=== PATIENT | female | born 1995 | race Two or more races ===

== ENCOUNTER 2025-09-22 13:54 | Emergency (ER) | payer MEDICAID, OTHER ==
[~2025-09-22] VITALS: Ht 149.9 cm; Wt 63.1 kg
[2025-09-22] MEDS: METOCLOPRAMIDE HCL 10 MG TAB PO ONE (15:41)
[2025-09-22] MEDS: SUMAtriptan SUCCINATE 6 MG/0.5 ML VL SC ONE (15:42)
--- NOTE | 2025-09-22 15:43 | ED.PDOC ---
HPI (NEURO) HPI Comments A 30 YEAR OLD FEMALE PRESENTS TO THE ED WITH COMPLAINT OF HEADACHE. PT STATES SHE HAS BEEN HAVING HEADACHE WITH NAUSEA AND VOMITING FOR THE PAST 1X DAY. PT STATES SHE TOOK ZOFRAN YESTERDAY AND TODAY BUT IT DID NOT HELP. PT STATES SHE WAS SEEN AT URGENT CARE AND TOLD TO COME TO THE ED FOR FURTHER EVALUATION. PATIENT DENIES FEVER, CHILLS, SHORTNESS OF BREATH, CHEST PAIN, ABDOMINAL PAIN, OR OTHER COMPLAINTS. NO OTHER SYMPTOMS OR MODIFYING FACTORS AT THIS TIME. PATIENT IS ALERT, ORIENTED X 4, AND HAS STEADY GAIT. Chief Complaint: Headache Time Seen by MD: 15:34 Reviewed Notes: Nurses Notes, Medications, Allergies Information Source: Patient Mode of Arrival: Ambulatory Brought in by: SELF Severity: Moderate Dizziness/Weakness Severity: Does not affect activitie Headache Severity: Worst Headache of life Timing: Days Duration: Since onset, Days Prehospital treatment: None Headache Quality: Throbbing Headache Location: Frontal, Parietal Onset: At rest Circumstances: Spontaneous Symptoms: None Before: Normal During: Trauma: None History of: None Modifying factors: Light Associated Signs and Symptoms: Headache, Nausea, Vomiting Past Medical History Past Medical History (Other): MIGRAINE HEADACHE Surgical History: Denies all surgeries FIRE SAFETY MANAGER History: Denies all FIRE SAFETY MANAGER Hx Family History Family History: Reviewed,noncontributory to illness Social History Smoker: Non-Smoker Alcohol: Denies ETOH Use Drugs: Denies Drug Use Lives In: Home Constitutional: denies: chills, diaphoresis, fatigue, fever, malaise, sweats, weakness, others EENTM: denies: blurred vision, double vision, ear bleeding, ear discharge, ear drainage, ear pain, ear ringing, eye pain, eye redness, hearing loss, mouth pain, mouth swelling, nasal discharge, nose bleeding, nose congestion, nose pain, photophobia, tearing, throat pain, throat swelling, voice changes, others Respiratory: denies: cough, hemoptysis, orthopnea, SOB at rest, shortness of breath, SOB with excertion, stridor, wheezing, others Cardiovascular: denies: chest pain, dizzy spells, diaphoresis, Dyspnea on exertion, edema, irregular heart beat, left arm pain, lightheadedness, palpitations, PND, syncope, others Gastrointestinal: reports: nausea, vomiting; denies: abdomen distended, abdominal pain, blood streaked bowels, constipated, diarrhea, dysphagia, difficulty swallowing, hematemesis, melena, poor appetite, poor fluid intake, rectal bleeding, rectal pain, others Genitourinary: denies: abnormal vagina bleeding, burning, dyspareunia, dysuria, flank pain, frequency, hematuria, incontinence, pain, , vagina discharge, urgency, others Neurological: reports: headache; denies: dizziness, fainting, left sided numbness, left sided weakness, numbness, paresthesia, pre-existing deficit, right sided numbness, right sided weakness, seizure, speech problems, tingling, tremors, weakness, others Musculoskeletal: denies: back pain, gout, joint pain, joint swelling, muscle pain, muscle stiffness, neck pain, others Integumetry: denies: bruises, change in color, change in hair/nails, dryness, laceration, lesions, lumps, rash, wounds, others Allergic/Immunocompromised: denies: Difficulty Healing, Frequent Infections, Hives, Itching, others Hematologic/Lymphatic: denies: anemia, blood clots, easy bleeding, easy bruising, swollen glands, others Endocrine: denies: excessive hunger, excessive sweating, excessive thirst, excessive urination, flushing, intolerance to cold, intolerance to heat, unexplained weight gain, unexplained weight loss, others Psychiatric: denies: anxiety, bipolar disorder, depression, hopeless, panic disorder, schizophrenia, sleepless, suicidal, others All Other Systems: Reviewed and Negative Physical Exam General Appearance: No Apparent Distress, Normal HEENT: Normal ENT Inspection, PERRL/EOMI, Pharynx Normal, TMs Normal Neck: Full Range of Motion, Non-Tender, Normal, Normal Inspection Respiratory: Chest Non-Tender, Lungs Clear, No Accessory Muscle Use, No Respiratory Distress, Normal Breath Sounds Cardiovascular: No Edema, No JVD, No Murmur, No Gallop, Normal Peripheral Pulses, Regular Rate/Rhythm Breast Exam: Deferred Gastrointestinal: No Organomegaly, Non Tender, No Pulsatile Mass, Normal Bowel Sounds, Soft Genitalia: Deferred Pelvic: Deferred Rectal: Deferred Extremities: No calf tenderness, Normal capillary refill, Normal inspection, Normal range of motion, Non-tender, No pedal edema Musculoskeletal : Apperance: Normal Neurologic: Alert, finished goods inspector II-XII nml as Tested, Headache, No Motor Deficits, Normal Affect, Normal Mood, No Sensory Deficits Cerebellar Function: Normal Reflexes: Normal Skin: Dry, Normal Color, Warm Peripheral Pulses: 2+ carotid (R), 2+ carotid (L) Lymphatic: No Adenopathy Was a procedure done? Was a procedure done?: No Differential Diagnosis (SZ) General Weakness: Anemia, Dehydration, Electrolyte imbalance, Vertigo: central, Vertigo: peripheral Headache: Cluster, Migraine, Intracerebral Hemorrhage, Sinusitis, Trigeminal Neuralgia X-Ray, Labs, Meds, VS Vital Signs Date Time Temp Pulse Resp B/P (MAP) Pulse Ox O2 Delivery O2 Flow Rate FiO2 09/22/25 13:55 97.0 75 18 140/93 99 97.0 Current Medications Medications (Trade) Dose Ordered Sig/Teodora Route Start Time Stop Time Status Last Admin Sumatriptan Succinate (Imitrex Inj) 6 mg ONCE ONCE SC 09/22/25 15:45 09/22/25 15:46 DC 09/22/25 15:42 Metoclopramide HCl (Reglan Tablet) 10 mg ONCE ONCE PO 09/22/25 15:45 09/22/25 15:46 DC 09/22/25 15:41 PATIENT: JEREMIAH NATARAJANCT: [id number]: [id number] : 1995 LOC: ER ROOM / BED: / AGE / SEX: 30 / F ADM STATUS: REG ER SERVICE 1533 ORDERING PHYSICIAN: HAYES VASQUEZ PROCEDURE(s): HWOCT - HEAD WITHOUT CONTRAST REASON: RIGHT SIDE HEADACHE WITH N/V ORDER NUMBER(s): [id number], ACCESSION NUMBER(s): [id number] CLINICAL HISTORY: RIGHT SIDE HEADACHE WITH N/V TECHNIQUE: Helical scanning was performed of the head from the skull base to the vertex. Multiplanar reconstructions were performed. This exam was performed according to our departmental dose optimization program. Up-to-date CT equipment and radiation dose reduction techniques are utilized as appropriate. CTDI 52 DLP 840 COMPARISON: None FINDINGS: There is no evidence for acute intracranial hemorrhage, acute ischemic changes, mass, mass effect, or extra-axial fluid collection. There is no hydrocephalus or midline shift. There is no effacement of the cerebral sulci and basal subarachnoid cisterns. The davenport-white matter differentiation is well maintained. The imaged paranasal sinuses are clear. IMPRESSION: NO ACUTE INTRACRANIAL ABNORMALITY SEEN. ATED BY: DARSHANA ALONZO MD DICTATED DATE/TIME: 09/22/251614 SIGNED BY: DARSHANA ALONZO MD SIGNED DATE/TIME: 09/22/251614 CC: X-Ray, Labs, Meds, VS Comment COURSE: EXTERNAL MEDICAL RECORDS REVIEWED: [NONE] INDEPENDENT HISTORIANS: [NONE] SOCIAL DETERMINANTS OF HEALTH: [NONE] LABS ORDERED: NONE REVIEWED AND INTERPRETED RESULTS: NONE IMAGING ORDERED: CT HEAD W/O CONTRAST TREATMENTS ORDERED: METOCLOPRAMIDE 10MG , SUMATRIPTAN 6 MG PROCEDURES PERFORMED: NONE CRITICAL CARE TIME: NONE I HAVE DISCUSSED THE PATIENT WITH THE ATTENDING PHYSICIAN, DR. BEAULIEU, HE AGREES WITH THE PATIENT'S PLAN OF CARE AND DISPOSITION. BASED ON HISTORY OF PRESENT ILLNESS, AND PHYSICAL EXAM, PATIENT WILL BE DISCHARGED HOME. DISCUSSED PLAN FOR DISCHARGE HOME WITH RX [IMITREX AND REGLAN]. MEDICATION WARNINGS GIVEN. SHARED DECISION MAKING: DISCUSSED WITH PATIENT THAT THEIR WORKUP WAS NORMAL. PATIENT INSTRUCTED TO FOLLOW UP WITH PRIMARY CARE PROVIDER IN 1-2 DAYS FOR RE- EVALUATION OF SYMPTOMS. PATIENT VERBALIZES UNDERSTANDING TO RETURN TO ED FOR NEW OR WORSENING SYMPTOMS OR IF FOLLOW UP WITH PCP CANNOT BE OBTAINED. PATIENT FEELS COMFORTABLE GOING HOME AT THIS TIME. ALL QUESTIONS ADDRESSED AT TIME OF DISCHARGE. Time of 1ST Reevaluation: 16:44 Reevaluation 1ST: Improved Patient Education/Counseling: Diagnosis, Treatment, Need For Follow Up Family Education/Counseling: Diagnosis, Treatment, Need For Follow Up, No Family Present Medical Screening: No EMC Exist At This Time Departure 1 Departure Time of Disposition: 16:44 Impression: Primary Impression: Migraine headache Qualified Codes: G43.909 - Migraine, unspecified, not intractable, without status migrainosus Disposition: 01 HOME / SELF CARE / HOMELESS Condition: Stable Additional Instructions: INSTRUCTIONS: FOLLOW-UP WITH PCP IN 1 TO 2 DAYS. TAKE MEDICATIONS PRESCRIBED. RETURN TO ED FOR ANY NEW OR WORSENING SYMPTOMS. e-Prescriptions Metoclopramide Hcl (Reglan) 10 Mg Tab 10 MG PO BID, #30 TAB Prov: HAYES VASQUEZ 09/22/25 Sumatriptan Succinate (Imitrex) 50 Mg Tab 1 TAB PO BID, #20 TAB Prov: HAYES VASQUEZ 09/22/25 Discharged With: Self Critical Care Note Critical Care Time?: No Stability Stability form required: No Heart Score Heart Score: Heart Score Response (Comments) Value History N/A 0 EKG N/A 0 Age N/A 0 Risk Factors N/A 0 Troponin N/A 0 Total 0 I personally scribed for HAYES VASQUEZ ([email or web address]) on 09/22/25 at 15:43. Electronically submitted by Travis Camacho ([email or web address]). I personally scribed for AHYES VASQUEZ ([email or web address]) on 09/22/25 at 15:44. Electronically submitted by Travis Camacho ([email or web address]). HAYES VASQUEZ Sep 22, 2025 15:43
--- NOTE | 2025-09-22 16:18 | DVH ---
CLINICAL HISTORY: RIGHT SIDE HEADACHE WITH N/V TECHNIQUE: Helical scanning was performed of the head from the skull base to the vertex. Multiplanar reconstructions were performed. This exam was performed according to our departmental dose optimizat ion program. Up-to-date CT equipment and radiation dose reduction techniques are utilized as appropri ate. CTDI 52 DLP 840 COMPARISON: None FINDINGS: There is no evidence for acute intracranial hemorrhage, acute ischemic changes, mass, mass effect, or extra-axial fluid collection. There is no hydrocephalus or midline shift. There is no effacement of the cerebral sulci and basal subarachnoid cisterns. The davenport-white matter differentiation is well esthela ntained. The imaged paranasal sinuses are clear. IMPRESSION: NO ACUTE INTRACRANIAL ABNORMALITY SEEN.
[2025-09-22] MEDS ORDERED: SUMA50TA2 PO (16:48)
[2025-09-22] MEDS ORDERED: METO-281 PO (16:48)
[2025-09-22 16:50] VITALS: BP 144/88; PULSE 75; RESP 16; TEMP 98.2; O2SAT 96
== END 2025-09-22 16:58 | disposition home or self-care (01) ==
LOC: ER 13:54
DX: G43.909 Migraine, unspecified, not intractable, without status migrainosus (principal); R11.2 Nausea with vomiting, unspecified; R42 Dizziness and giddiness
CPT/HCPCS: 70450; 96372; 99285; J3030; J8597